=== PATIENT | male | born 1960 | race Caucasian/White ===

== ENCOUNTER → 2020-10-03 08:48 | Outpatient (CLI) | payer OTHER, MEDICAID, SELFPAY ==
--- NOTE | 2020-10-03 | DI.ECHO.S_ITS ---
[facility] +---------+ : : [address] : : : : [id number] : : : : Phone: [phone]---------+ Echocardiogram Report + + :Name: SONIA NORMAN Study Date: 10/03/2020 Height: 70 in : :[facility] ReadingLocation: Weight: 240 lb : : Gender: Male BSA: 2.3 m2 : :: 1960 Age: 59 yrs BP: 138/75 mmHg: :Reason For Study: AI : : Performed By: Dash Valdovinos : :Referring: GEREMIAS HERNANDEZ : + + Interpretation Summary 1) Normal left ventricular size, thickness, wall motion, and systolic function (EF 55-60%). 2) The right ventricle is normal in size and function. 3) There is mild aortic stenosis (valve area 1.7cm2, mean gradient 21mmHg) from suspected bicuspid aortic valve. 4) The ascending aorta is mild-moderately enlarged at 4.2cm. 5) Compared to the Echo done 01/24/2018, mild aortic stenosis is present. Procedure: A two-dimensional transthoracic echocardiogram with color flow and Doppler was performed. The study quality was technically adequate. Comparison is made with the echocardiogram of 07/04/19. The subcostal views were difficult to obtain and are suboptimal in quality. The patient was in normal sinus rhythm during the exam. Left Ventricle: The left ventricle is normal in size. There is normal left ventricular wall thickness. The ejection fraction is estimated to be 55-60%. There are no focal wall motion abnormalities. Diastolic function could not be accurately assessed due to contradictory data. Right Ventricle: The right ventricle is normal in size and function. Atria: Both atria are normal in size. There is no Doppler evidence for an atrial septal defect. Mitral Valve: The mitral valve leaflets are slightly calcified. The mitral valve chordae are thickened and/or calcified. There is trace mitral regurgitation. Aortic Valve: The aortic valve is moderately calcified. A bicuspid aortic valve cannot be excluded. The peak aortic velocity is 2.82 m/sec. The aortic valve mean gradient is 21.3 mmHg. The calculated aortic valve area is 1.7 cm2. There is mild aortic stenosis. There is moderate aortic regurgitation. Tricuspid Valve: The tricuspid valve is normal in structure and function. There is trace tricuspid regurgitation. Right ventricular systolic pressure is estimated to be 18 mmHg plus the clinically estimated CVP which cannot be estimated on this exam. Pulmonic Valve: The pulmonic valve leaflets are thin and pliable; valve motion is normal. There is no pulmonic valvular regurgitation. Great Vessels: The aortic root is normal size. The ascending aorta is mild- moderately enlarged. The pulmonary artery is normal size. The inferior vena cava was not well visualized. Pericardium/ Pleura There is no pericardial effusion. There is an anterior echo-free space consistent with a fat pad. There is no pleural effusion. MMode/2D Measurements & Calculations LVIDd: 5.6 cm LVOT diam: 2.8 cm LVIDs: 3.8 cm Ao root diam: 3.7 cm FS: 32.9 % asc Aorta Diam: 4.2 cm EPSS: 0.45 cm Ao Arch Diam (Prox Trans): 3.0 cm IVSd: 1.1 cm LVPWd: 0.96 cm LV hernandez. diameter/BSA (cm/m^2): 2.5 LV sys. diameter/BSA (cm/m^2): 1.7 LA dimension: 3.3 cm RA long axis: 5.0 cm LA A2 area: 20.5 cm2 RA area: 19.7 cm2 LA A4 area: 19.1 cm2 RA vol: 66.4 ml LA length (vol): 5.6 cm RA : 29.4 ml/m2 LA vol: 59.4 ml LA vol index: 26.3 ml/m2 TAPSE: 1.9 cm Doppler Measurements & Calculations Ao V2 max: 282.0 cm/sec LVOT Max Damaso: 82.3 cm/sec Ao V2 mean: 224.7 cm/sec LV V1 max P.7 mmHg Ao max P.8 mmHg LV V1 VTI: 22.5 cm Ao mean P.3 mmHg RENITA(I,D): 2.0 cm2 Ao V2 VTI: 65.9 cm RENITA(V,D): 1.7 cm2 sev ratio: 0.34 RENITA indexed to BSA (cm^2/m^2): 0.91 AI P1/2t: 1200 msec AI dec slope: 91.0 cm/sec2 MV E max damaso: 77.3 cm/sec TR max damaso: 214.6 cm/sec MV A max damaso: 97.9 cm/sec TR max P.4 mmHg MV E/A: 0.79 PA V2 max: 94.0 cm/sec Med Peak E' Damaso: 4.5 cm/sec PA V2 mean: 65.4 cm/sec E/E' med: 17.1 PA mean P.9 mmHg Lat Peak E' Damaso: 5.7 cm/sec PA pr(Accel): 44.3 mmHg E/E' lat: 13.6 E/e' average: 15.3 MV dec time: 0.21 sec SV(LVOT): 134.7 ml Reading Physician:02:22 PM
== END ==
PROVIDERS: Family Provider Family Medicine; PCP Family Medicine; Referring Provider Internal Medicine Cardiovascular Disease; Visit Provider Internal Medicine Cardiovascular Disease
DX: I35.2 Nonrheumatic aortic (valve) stenosis with insufficiency (principal); I77.89 Other specified disorders of arteries and arterioles
CPT/HCPCS: 93306

== ENCOUNTER → 2021-11-27 16:20 | Outpatient (CLI) | payer OTHER, MEDICAID, SELFPAY ==
[2021-11-27 17:50] LABS: Cholesterol 129 mg/dL (140-199); HDL Cholesterol 52 mg/dL (40-60); LDL Cholesterol Calculated 50 mg/dL (<100); Triglycerides 137 mg/dL (35-150)
[2021-11-27 17:54] LABS: Hemoglobin A1C% w Est Avg Glu 6.9 % (4.0-6.0)
[2021-11-27 18:22] LABS: TSH w/ Reflex to FT4 2.61 uIU/mL (0.47-4.68)
[2021-11-27 18:56] LABS: Creatinine Urine Random 156.6 mg/dL
[2021-11-27 18:58] LABS: Microalbumi Creatinin Ratio Ur 5.1 ug/mg CR (<30); Microalbumin Urine Random 0.8 mg/dL (0-1.6)
[2021-11-27 19:27] LABS: Appearance Urine UA CLEAR; Bilirubin Urine UA NEGATIVE (NEGATIVE); Color Urine UA YELLOW; Glucose Urine UA NEGATIVE (Negative); Ketones Urine UA NEGATIVE (NEGATIVE); Leukocyte Esterase Urine UA NEGATIVE (NEGATIVE); Nitrite Urine UA NEGATIVE (Negative); Occult Blood Urine UA NEGATIVE (Negative); Protein Urine UA NEGATIVE (Negative); Urobilinogen Urine UA 0.2 E.U./dL (0.2); pH Urine UA 5.5 (4.5-8.0)
[2021-11-27 19:28] LABS: Bacteria Urine None Seen; Culture Indicated Urine Cult Not Indicated; RBC Urine 0-1/HPF (0-5/HPF); WBC Urine 0-1/HPF (0-5/HPF)
== END ==
PROVIDERS: Family Provider Family Medicine; PCP Family Medicine; Referring Provider Family Medicine; Visit Provider Family Medicine
DX: I10 Essential (primary) hypertension (principal); R35.1 Nocturia; E78.5 Hyperlipidemia, unspecified; R73.9 Hyperglycemia, unspecified; G47.19 Other hypersomnia; I25.2 Old myocardial infarction
CPT/HCPCS: 36415; 80061; 81001; 82043; 82570; 83036; 84443

== ENCOUNTER 2024-02-03 02:07 | Emergency (ER) | payer OTHER, MEDICAID, SELFPAY ==
[2024-02-03 02:17] VITALS: BP 150/89; PULSE 84; RESP 18; TEMP 36.9; O2SAT 95; BMI 35.2
--- NOTE | 2024-02-03 02:48 | EKG_ITS ---
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
[2024-02-03 02:49] LABS: Add Manual Diff / Slide Review NO; Basophils Absolute Auto 100 /uL (0-100); Basophils Percent Auto 0.7 % (0-2); Eosinophils Absolute Auto 100 /uL (0-450); Eosinophils Percent Auto 0.6 % (2-4); Hematocrit 44.3 % (41-53); Hemoglobin 14.9 g/dL (13.5-17.5); Lymphocytes Absolute Auto 1400 /uL (1100-4500); Lymphocytes Percent Auto 13.3 % (25-40); Mean Corpuscular HGB Conc 33.7 % (30-36); Mean Corpuscular Hemoglobin 28.9 PG (26-34); Mean Corpuscular Volume 85.9 fL (80-100); Monocytes Absolute Auto 800 /uL (0-900); Monocytes Percent Auto 7.2 % (3-14); Neutrophils Absolute Auto 8300 /uL (1500-7000); Neutrophils Percent Auto 78.2 % (50-75); Platelet Count 217 X10^3/uL (150-400); Red Blood Cell Count 5.16 X10^6/uL (4.5-5.9); Red Cell Distribution Width 14.7 % (11.6-14.8); White Blood Cell Count 10.6 X10^3/uL (4.5-11.0)
--- NOTE | 2024-02-03 02:53 | ED_ITS ---
HPI - Abdominal Pain General Chief Complaint: Abdominal Pain Stated Complaint: possible food poisioning Time Seen by Provider: 02/03/24 02:38 Source: patient, family, RN notes reviewed and old records reviewed Mode of arrival: Family Vehicle Limitations: no limitations History of Present Illness HPI narrative: 63-year-old male with history of disease with cardiac stent, hypertension, dyslipidemia on aspirin 81 mg daily and uses inhalers after having pneumonia. Patient presents for over tired abdominal pain that started about 1930 this evening. Patient states did not really have any symptoms before he states he did have gas station food about an hour before that. States pain has been persistent has not resolved. Has continued to be located in the in the left lower quadrant. No flank pain reported. No fevers or chills that he is aware of. He had nausea and vomiting on his way here. States nausea is improved. Patient states he has been constipated but did have a bowel movement yesterday as well as earlier in the day and then some very small amounts later this evening. Denies any chest pain or pressure, no shortness of breath, denies any urinary symptoms. No rash or skin changes. Patient had take anything for pain prior to arrival home medications include aspirin, statin, metoprolol, metformin and 2 inhalers. Patient states only surgeries or prior cardiac stent. States allergic to penicillin develops a rash. No tobacco, alcohol or recreational drugs. Primary care provider is Amalia Cadena. Related Data Previous Rx's Medication Instructions Recorded docusate sodium 100 mg capsule 100 mg PO BID PRN constipation #20 02/03/24 (Col-Rite) caps oxycodone 5 mg tablet 5 mg PO Q6H PRN pain #10 tabs 02/03/24 Allergies Allergy/AdvReac Type Severity Reaction Status Date / Time Penicillins [PENICILLINS] AdvReac Mild RASH Unverified 11/23/17 11:59 Review of Systems Review of Systems ROS Unobtainable: All systems reviewed & are unremarkable except as noted in HPI and below Patient History Social History Smoking Status: Former smoker Smoking Status: Former smoker Substance Use Type: former substance user Exam Narrative Exam Narrative: GENERAL: Alert and oriented x three, obese male in moderate pain. HEENT: Head normocephalic, atraumatic, EOMI, pupils reactive, face symmetric, moist mucous membranes NECK: Supple, full range of motion CARDIOVASCULAR: Regular rate and rhythm without murmurs, rubs or gallops. RESPIRATORY: Breath sounds equal bilaterally, no wheezes rales or rhonchi. ABDOMEN: Soft, nontender. Normoactive bowel sounds all 4 quadrants. No guarding or rebound, rigidity, no mass : No CVA tenderness EXTREMITIES: Normal range of motion, no clubbing or edema. Neurovascularly intact NEUROLOGICAL: Cranial nerves II through XII grossly intact. Moving all extremities SKIN: Warm, dry, no petechiae, no rashes or lesions. Initial Vital Signs Initial Vital Signs: Vital Signs Temperature 98.5 F 02/03/24 02:17 Pulse Rate 84 02/03/24 02:17 Respiratory Rate 18 02/03/24 02:17 Blood Pressure 150/89 H 02/03/24 02:17 Pulse Oximetry 95 02/03/24 02:17 Oxygen Delivery Method Room Air 02/03/24 02:17 Course Orders Ordered: ED Orders 02/03/24 02:28 EKG-12 Lead Stat 02/03/24 02:38 Complete Blood Count AUTO DIFF Stat Comprehensive Metabolic Panel Stat Lipase Stat 02/03/24 03:04 CT abdomen pelvis w con Stat Ondansetron HCl (Ondansetron 4 Mg/2 Ml Inj) 4 mg IV NOW PRN PRN Reason: Nausea And Vomiting Last Admin: 02/03/24 03:17 Dose: 4 mg Documented By: Discontinued Medications Sodium Chloride (Normal Saline 0.9%) 1,000 mls @ 1,000 mls/hr IV BOLUS ONE Stop: 02/03/24 04:03 Last Infusion: 02/03/24 05:46 Dose: Infused Documented By: Admin: 02/03/24 03:17 Dose: 1,000 mls/hr Documented By: Morphine Sulfate (Morphine 4 Mg/Ml Inj) 4 mg IV NOW ONE Stop: 02/03/24 03:05 Last Admin: 02/03/24 03:17 Dose: 4 mg Documented By: Morphine Sulfate (Morphine 4 Mg/Ml Inj) 4 mg IV NOW ONE Stop: 02/03/24 04:46 Last Admin: 02/03/24 05:12 Dose: 4 mg Documented By: Ondansetron HCl (Ondansetron 4 Mg Odt) 4 mg PO NOW PRN PRN Reason: Nausea And Vomiting Vital Signs Vital signs: Vital Signs - 8 hr 02/03/24 02:17 02/03/24 06:31 Temperature 98.5 F 98.6 F Pulse Rate 84 67 Respiratory Rate 18 19 Blood Pressure 150/89 H 135/78 Pulse Oximetry 95 98 Oxygen Delivery Method Room Air Room Air MDM - Abdominal Pain Lab Data 02/03/24 02:38 02/03/24 02:38 Labs: Lab Results 02/03/24 Range/Units 02:38 WBC 10.6 (4.5-11.0) X10^3/uL RBC 5.16 (4.5-5.9) X10^6/uL Hgb 14.9 (13.5-17.5) g/dL Hct 44.3 (41-53) % MCV 85.9 (80-100) fL MCH 28.9 (26-34) PG MCHC 33.7 (30-36) % RDW 14.7 (11.6-14.8) % Plt Count 217 (150-400) X10^3/uL Neut % (Auto) 78.2 H (50-75) % Lymph % (Auto) 13.3 L (25-40) % Stephens % (Auto) 7.2 (3-14) % Eos % (Auto) 0.6 L (2-4) % Baso % (Auto) 0.7 (0-2) % Neut # (Auto) 8300 H (3599-3046) /uL Lymph # (Auto) 1400 (1996-7992) /uL Stephens # (Auto) 800 (0-900) /uL Eos # (Auto) 100 (0-450) /uL Baso # (Auto) 100 (0-100) /uL Sodium 137 (137-145) mmol/L Potassium 4.0 (3.4-5.1) mmol/L Chloride 104 (98-107) mmol/L Carbon Dioxide 29 (22-32) mmol/L BUN 12 (9-20) mg/dL Creatinine 0.80 (0.66-1.25) mg/dL Estimated GFR > 60 (>60) mL/min BUN/Creatinine Ratio 15.0 (6-22) Glucose 121 H (80-110) mg/dL Calcium 9.6 (8.4-10.2) mg/dL Total Bilirubin 1.1 (0.2-1.3) mg/dL AST 25 (17-59) IU/L ALT 24 (<50) IU/L Alkaline Phosphatase 86 (38-126) U/L Total Protein 7.9 (6.3-8.2) g/dL Albumin 4.5 (3.5-5.0) g/dL Globulin 3.4 (1.7-4.1) g/dL Albumin/Globulin Ratio 1.3 (1.0-2.8) Lipase 154 (23-300) U/L Point of care testing: Urine Dip Bedside Urine Glucose Negative Bedside Urine Bilirubin - Negative Bedside Urine Ketone - Negative Urine Specific [place] 1.010 Bedside Urine Occult Blood - Negative Bedside Urine pH 5.5 Bedside Urine Protein - Negative Bedside Urine Urobilinogen - Negative Bedside Urine Nitrite - Negative Bedside Urine Leukocytes - Negative Esterase Imaging Data CT scan - abdomen/pelvis: Radiologist's Impression: Mild low-density of the liver parenchyma consistent with hepatic steatosis no focal liver lesion. Focal wedge-shaped low density lateral anterior upper margin of the spleen suggestive of splenic infarct. Spleen size is normal no hemorrhage or abnormal fluid collection. This could be acute per report. Simple renal cysts, hepatic steatosis. ECG Data Attestation: I personally reviewed and interpreted this ECG as follows: Prior ECG tracings: available for review Interpretation: Sinus rhythm nonspecific T-wave change, rate 83 SC 172 QRS 80 QTC of 437. No acute ST elevation or depression noted. Patient has prior from 02/19/2016 with no acute changes. MDM Narrative Medical decision making narrative: 63-year-old male with left-sided abdominal pain that is more anterior no flank pain. Patient is not particularly tender on examination but does not have any flank pain. Possible kidney stone versus diverticulitis versus other cause included patient is slightly hypertensive here in the department. Labs show normal white count, hemoglobin of 14, platelets of 217, electrolytes are normal, creatinine 0.7, BUN 12 with a glucose of 121. Normal bilirubin, LFTs and lipase. Urine shows no acute change. EKG shows no acute change CT abdomen pelvis shows possible acute splenic infarct involving approximately 30% the splenic volume. Patient received fluids, pain medication, he is feeling improved at this time. Spoke with Dr. Lopez, general surgery: She notes no specific workup at this time, recommends pain management. Discharge Plan Departure Clinical Impression: Splenic infarct Activity Restrictions/Additional Instructions: Follow up your physician for recheck. They may wish to have you follow up to get an echo in the future. I did speak with General surgery, at this time management consists of medication for pain management. You can take Tylenol up to a 1000 mg every 6 hours, if inadequate for pain you can take oxycodone 1-2 tablets every 6 hours as needed. This medication can make you sleepy do not drive, perform hazardous activities or make any major decisions while taking it. This medication will make you constipated please take a stool softener once to twice daily until stools are soft and regular. Prescription sent to [facility] in [place] Please return for fevers, persistent or worsening abdominal back or flank pain, persistent vomiting, black or bloody stools, lightheadedness or passing out or other new or concerning changes Prescriptions: New docusate sodium [Col-Rite] 100 mg capsule 100 mg PO BID PRN (Reason: constipation) Qty: 20 0RF oxycodone 5 mg tablet 5 mg PO Q6H PRN (Reason: pain) Qty: 10 0RF Referrals: Amalia Cadena DO [Primary Care Provider] -
[2024-02-03 02:58] LABS: Alanine Aminotransferase 24 IU/L (<50); Albumin 4.5 g/dL (3.5-5.0); Albumin Globulin Ratio 1.3 (1.0-2.8); Alkaline Phosphatase 86 U/L (38-126); Aspartate Aminotransferase 25 IU/L (17-59); Bilirubin Total 1.1 mg/dL (0.2-1.3); Blood Urea Nitrogen 12 mg/dL (9-20); Calcium 9.6 mg/dL (8.4-10.2); Carbon Dioxide 29 mmol/L (22-32); Chloride 104 mmol/L (98-107); Estimated Glomerular Filt Rate > 60 mL/min (>60); Globulin 3.4 g/dL (1.7-4.1); Glucose 121 mg/dL (80-110); HEMOLYSIS < 15 (0-50); Lipase 154 U/L (23-300); Sodium 137 mmol/L (137-145); Total Protein 7.9 g/dL (6.3-8.2)
--- NOTE | 2024-02-03 03:04 | DI.CT.S_ITS ---
PROCEDURE: CT ABDOMEN PELVIS W CON INDICATIONS: LLQ pain, vomiting, constipation TECHNIQUE: After the administration of intravenous contrast, axial sections acquired from the lung bases to the pubic symphysis. Coronal and sagittal reformats were performed. For radiation dose reduction, the following was used: automated exposure control, adjustment of mA and/or kV according to patient size. COMPARISON: None. FINDINGS: Image quality: Diagnostic. Lower Chest: No significant findings. ABDOMEN: Liver: No solid mass. Mild diffuse hepatic steatosis. Gallbladder: No radiopaque gallstones or wall thickening. Biliary ducts: No biliary dilation. Pancreas: No ductal dilation. Spleen: There is an anterior superior splenic infarct, likely acute. Adrenal Glands: No adrenal nodules. Kidneys and Ureters: No hydronephrosis. No solid mass. No complex renal cystic lesion which requires follow up. Multiple renal cysts are noted. Stomach and Bowel: Normal colonic caliber, without significant wall thickening. Peritoneum: No abnormal intraperitoneal fluid. No free air. Ventral Wall: No significant ventral hernia. Abdominal Nodes: No retroperitoneal or mesenteric adenopathy by size criteria. Vessels: Aorta and inferior vena cava are normal in size. PELVIS: Pelvic Organs: Unremarkable. Bladder: No bladder wall thickening, accounting for underdistention. Pelvic Nodes: No enlarged lymph nodes. Miscellaneous: No inguinal hernias are seen. Bones: No aggressive osseous abnormality. IMPRESSION: 1. Splenic infarct, likely acute. 2. Mild diffuse hepatic steatosis. Comment: Final report is concordant with preliminary interpretation provided by [facility]. Dictated by: Jabari Ravi M.D. on 02/03/2024 at 8:01 Approved by: Jabari Ravi M.D. on 02/03/2024 at 8:08
[2024-02-03] MEDS: ONDANSETRON 4 MG/2 ML INJ IV (03:17)
[2024-02-03] MEDS: SODIUM CHLORIDE 0.9% 1,000 ML 1000 ML IV (03:17)
[2024-02-03] MEDS: MORPHINE 4 MG/ML INJ IV ×2 (03:17→05:12)
[2024-02-03 06:31] VITALS: BP 135/78; PULSE 67; RESP 19; TEMP 37; O2SAT 98
== END 2024-02-03 06:31 | disposition home or self-care (01) ==
PROVIDERS: Emergency Provider Emergency Medicine; Family Provider Family Medicine; PCP Family Medicine
DX: D73.5 Infarction of spleen (principal); K59.00 Constipation, unspecified; R10.9 Unspecified abdominal pain
CPT/HCPCS: 36415; 74177; 80053; 81003; 83690; 85025; 93005; 96361; 96374; 96375; 96376; 99284; J2270; J2405; Q9967